=== PATIENT | female | born 1960 | race Caucasian/White ===

== ENCOUNTER 2021-06-25 18:43 | Emergency (ER) | payer BC, SELFPAY ==
[2021-06-25 18:50] VITALS: BP 117/85; PULSE 92; RESP 20; TEMP 36.9; O2SAT 98; BMI 26.6
--- NOTE | 2021-06-25 19:29 | HMH.EDUTC ---
[facility] [place] Disposition Clinical Impression: Close exposure to COVID-19 virus Disposition: Home, Self-Care Condition on Discharge: Good Instructions: DI for COVID-19 (Suspected or Confirmed ), COVID-19: Protecting Yourself When You're at High Risk Additional Instructions: 1.No sign of a bacterial infection. Likely viral. Viruses can take 7-14 days to run their course. Nasal saline and bulb syringe or nose Freda to remove nasal drainage to help with nasal congestion. Hard to eat, drink, sleep with nasal congestion so important to keep this cleaned out. Monitor temp. Tylenol or Motrin as needed for pain or fever Encourage fluids, water, Gatorade, Powerade, Pedialyte if /toddler/child Warm salt water gargles Warm fluids Sore throat lozenges Sleep elevated Humidifier/vaporizer Follow-up immediately for new or worsening symptoms or no noticeable improvement over the next 48-72 hours. 2.covid swab was sent to lab, call later today for results. self isolate until test results are known to be negative 3.Monitor temperature. Seek treatment if fever develops. Follow-up immediately if new or worse symptoms worsen or no noticeable improvement over 48 hours. Increase fluids such as water, Gatorade, Powerade, juice or Pedialyte with limited formula/dietary in children No food is okay as long as you are drinking. Once ready to eat start bland such as bananas, rice, applesauce, toast. Contagious until no diarrhea, vomiting, fever times 48 hours without medication Avoid antidiarrheals unless told otherwise. Best to let the virus run its course. Follow-up immediately for new or worsening symptoms or no noticeable improvement over the next 48 hours. Referrals: Marck Reyna [Primary Care Provider] - Time of Disposition: 19:31 Medical Decision Making - Quan Inquiry Pt receiving controlled substance: No Vital Signs: 06/25/21 18:50 Temperature 98.5 F Temperature Source Oral Pulse Rate [Right Brachial] 92 H Respiratory Rate 20 Blood Pressure [Right Arm] 117/85 Blood Pressure Mean [Right Arm] 95 Blood Pressure Source [Right Arm] Automatic Cuff Blood Pressure Position [Right Arm] Sitting 02 Sat by Pulse Oximetry 98 Oxygen Delivery Method Room Air Orders (Tests/Meds): ORDERS Category Date Time Status Covid-19 Nasal PCR ([facility]) Routine Lab 06/25/21 18:55 Received [facility] [place] HPI - General Chief complaint: Urgent Treatment Center Stated complaint: covid test Time Seen by Provider: 06/25/21 19:29 Mode of Arrival: Ambulatory Source of Information: Patient Limitations: No Limitations Description of Symptoms (Recalled from Triage Doc. by RN): PATIENT C/O COUGH, HEADACHE, DIARRHEA X 2 DAYS. RECENTLY EXPOSED TO COVID HEENT Symptoms (Recalled from RN notes): Yes Resp Symptoms (Recalled from RN notes): No Skin Symptoms (Recalled from RN notes): No MS Symptoms (Recalled from RN notes): No Functional Status (Recalled from RN notes): WNL - History of Present Illness Provider Complaint: 61 yr old female presents for cough, diarrhea, body aches and nasal congestion for 2 days. has been exposed to covid - Related Data Allergies Allergy/AdvReac Type Severity Reaction Status Date / Time ciprofloxacin [From Cipro] Allergy Verified 06/25/21 19:21 Penicillins Allergy Verified 06/25/21 19:21 Sulfa (Sulfonamide Allergy Verified 06/25/21 19:21 Antibiotics) - Worker's Comp Is this a Worker's Comp case?: No [facility] History - Hepatitis A Screen Drug use history?: No High risk sexual behaviors?: No History of sexually transmitted infection?: No Currently employed?: No Childcare worker?: No Do you have indoor plumbing?: Yes Do you have electricity?: Yes Attestation statement:: This patient has been screened for Hepatitis A risk factors. I have reviewed the patient's past medical history: Yes ROS Obtained: Yes All systems reviewed & no additional complaints - Constitutional Constitutional: Reports system reviewe
[2021-06-25 19:40] VITALS: BP 117/85; PULSE 92; RESP 20; TEMP 36.9; O2SAT 98
--- NOTE | 2021-06-26 17:15 | PC.NURSE ---
pt called and advised of positive covid test
== END 2021-06-25 19:42 | disposition home or self-care (01) ==
PROVIDERS: Emergency Provider Nurse Practitioner Family; PCP Family Medicine
DX: U07.1 COVID-19 (principal)
CPT/HCPCS: 99202; G0463; U0003